=== PATIENT | male | born 1975 ===

== ENCOUNTER 2017-03-03 07:35 | Emergency (ER) | payer OTHER ==
[2017-03-03 07:37] VITALS: BMI 34.4
[2017-03-03 07:38] VITALS: RESP 20
--- NOTE | 2017-03-03 07:56 | ED PDOC ---
HPI: Psych/Substance Abuse Time Seen by Provider: 03/03/17 07:38 Chief Complaint (Nursing): Alcohol Ingestion Chief Complaint (Provider): Alcohol Intoxication ED Caveat: Intoxicated History Per: EMS History/Exam Limitations: intoxication Onset/Duration Of Symptoms: Mins (just prior to arrival) Current Symptoms Are (Timing): Still Present Additional History Per: Law Enforcement ([place] [employer]) Additional Complaint(s): 41 y/o male with no past medical or surgical history, brought in by EMS and accompanied by , who presents with a chief complaint of vomiting, just prior to arrival. Patient was found intoxicated and vomiting in a parking lot by [facility], and was brought to the station waiting for the EMS to arrive. Review of Systems was limited secondary to the patient's inability to answer any of the provider's questions. Past Medical History Reviewed: Historical Data, Nursing Documentation, Vital Signs Vital Signs: Last Vital Signs Temp 97.4 F L 03/03/17 07:37 Pulse 105 H 03/03/17 07:37 Resp 20 03/03/17 07:37 BP 135/72 03/03/17 07:37 Pulse Ox 94 L 03/03/17 07:37 - Medical History PMH: No Chronic Diseases - Surgical History Surgical History: No Surg Hx - Family History Family History: States: Unknown Family Hx - Living Arrangements Living Arrangements: With Family () - Social History Current smoker - smoking cessation education provided: Yes SMOKER/PACKS PER DAY:: 1 (pack per day) Alcohol: Social - Allergies Allergies/Adverse Reactions: Allergies Allergy/AdvReac Type Severity Reaction Status Date / Time No Known Allergies Allergy Verified 03/03/17 07:50 Review of Systems ROS Statement: Except As Marked, All Systems Reviewed And Found Negative Review Of Systems: ROS cannot be obtained secondary to pt's inabilty to answer questions. (patient is intoxicated) Gastrointestinal: Positive for: Vomiting Physical Exam - Reviewed Nursing Documentation Reviewed: Yes Vital Signs Reviewed: Yes - Physical Exam Appears: Positive for: Non-toxic, No Acute Distress Head Exam: Positive for: ATRAUMATIC, NORMOCEPHALIC Skin: Positive for: Normal Color, Warm Eye Exam: Positive for: Normal appearance, EOMI, PERRL ENT: Positive for: Normal ENT Inspection Neck: Positive for: Normal, Painless ROM, Supple Cardiovascular/Chest: Positive for: Regular Rate, Rhythm. Negative for: Murmur Respiratory: Positive for: Normal Breath Sounds. Negative for: Respiratory Distress Gastrointestinal/Abdominal: Positive for: Normal Exam, Soft. Negative for: Tenderness Back: Positive for: Normal Inspection Extremity: Positive for: Normal ROM. Negative for: Pedal Edema, Deformity Neurologic/Psych: Positive for: Oriented (x2). Negative for: Alert (sleepy but arousable to verbal stimuli) - Laboratory Results Result Diagrams: 03/03/17 08:15 03/03/17 08:15 - ECG O2 Sat by Pulse Oximetry: 94 (RA) Pulse Ox Interpretation: Normal Medical Decision Making Medical Decision Making: Time: -- Impression: --41 y/o male with Alcohol intoxication Plan: --EKG --Alcohol Serum --labs --IV Fluids --Zofran Inj 4mg IV --Glucose, blood, POC Reassess -- Scribe Attestation: Documented by Molina Drake acting as a scribe for Lala Hebert MD. Provider Attestation: All medical record entries made by the Scribe were at my direction and personally dictated by me. I have reviewed the chart and agree that the record accurately reflects my personal performance of the history, physical exam, medical decision making, and the department course for this patient. I have also personally directed, reviewed, and agree with the discharge instructions and disposition. Disposition - Clinical Impression Clinical Impression: Alcohol intoxication - Disposition Referrals: [facility] [Outside] Disposition: Routine/Home Disposition Time: 12:27 Condition: IMPROVED Instructions: Alcohol Intoxication (ED) Forms: [employer] (Welsh)
[2017-03-03] MEDS: Sodium Chloride 0.9% 1,000 ML IV STA ×2 (08:03→08:08)
[2017-03-03 08:44] LABS: ALB/GLOB RATIO 1.4 (1.0-2.1); ALCOHOL SERUM 83 mg/dl (0-10); ALKALINE PHOSPHATASE 47 U/L (38-126); ALT/SGPT 57 U/L (21-72); AST/SGOT 39 U/L (17-59); BILIRUBIN,TOTAL 0.5 mg/dl (0.2-1.3); BLOOD UREA NITROGEN 18 mg/dl (9-20); CALCIUM 9.4 mg/dL (8.4-10.2); CARBON DIOXIDE 18 mmol/L (22-30); CHLORIDE 111 mmol/L (98-107); GFR AFRICAN-AMERICAN > 60; GLUCOSE,RANDOM 103 mg/dL (75-110); POTASSIUM 4.6 MMOL/L (3.6-5.0); SODIUM 145 mmol/l (132-148)
[2017-03-03 09:05] LABS: BASO # 0.1 K/uL (0.0-0.2); BASO % 0.7 % (0.0-2.0); EOS % 0.1 % (0.0-4.0); HEMATOCRIT 56.1 % (35.0-51.0); LYMPH # 1.9 K/uL (1.0-4.3); LYMPH % 17.3 % (20.0-40.0); MEAN CELL VOLUME 95.4 fl (80.0-94.0); MEAN CORPUSCULAR HEMOGLOBIN 31.2 pg (27.0-31.0); MEAN CORPUSCULAR HGB CONC 32.7 g/dL (33.0-37.0); MEAN PLATELET VOLUME 9.7 fl (7.2-11.7); MONO # 0.6 K/uL (0.0-0.8); MONO % 5.3 % (0.0-10.0); NEUT # 8.4 K/uL (1.8-7.0); NEUT % 76.6 % (50.0-75.0); NRBC % 0.2 % (0.0-0.0); RED CELL DISTRIBUTION WIDTH 14.9 % (11.5-14.5)
--- NOTE | 2017-03-03 09:15 | CARD ---
APPROVED REPORT EKG Measurement Heart [id number] <Conclusion> Normal sinus rhythm Normal ECG
[2017-03-03 13:11] VITALS: BP 120/70; PULSE 78; TEMP 98.8
[2017-03-04 14:13] VITALS: O2SAT 94
== END 2017-03-03 13:12 | disposition home or self-care (01) ==
LOC: H.ER 07:35
DX: F10.129 Alcohol abuse with intoxication, unspecified (principal); F17.210 Nicotine dependence, cigarettes, uncomplicated
CPT/HCPCS: 80053; 80320; 82948; 85025; 93005; 96360; 99283; J2405; J7040